=== PATIENT | male | born 1975 | race Caucasian/White ===

== ENCOUNTER → 2016-10-14 | Outpatient (CLI) | payer OTHER ==
--- NOTE | 2016-10-14 16:59 | REP ---
MRI LUMBAR SPINE WITHOUT CONTRAST: HISTORY: Left hip numbness. Decreased signal intensity on T2-weighted images is present in the L2-3 and L5-S1 intervertebral discs. The discs are decreased in height. These findings are consistent with disc degeneration. There is no disc bulge or herniation at the L1-2 and L3-4 levels. The nerves exit the neural foramina without compression. A diffuse disc bulge is present at the L2-3 level. There is minimal compression of the thecal sac. The L2 nerves exit the neural foramina without compression. A diffuse disc bulge is present at the L4-5 level. This abuts the thecal sac. The L4-5 nerves exit the neural foramina without compression. A diffuse disc bulge and small central disc protrusion are present at the L5-S1 level. There are 3 mm of retrolisthesis of L5 on S1. There is minimal compression of the thecal sac. The L5 nerves exit the neural foramina without compression. The conus medullaris is normal in appearance terminating at the level of T12-L1 intervertebral disc. Normal signal intensity is present in the lumbar vertebral bodies. IMPRESSION: 1. Diffuse disc bulge at the L2-3 level with minimal thecal sac compression. 2. Diffuse disc bulge at the L4-5 level. This abuts the thecal sac. 3. Diffuse disc bulge, small central disc protrusion and retrolisthesis at the L5-S1 level with minimal thecal sac compression. Signed by Yohannes Dimas MD 10/31/2016 08:08 A
== END ==
LOC: M RAD 15:53
PROVIDERS: ATTEND Physician Assistant
DX: M51.06 Intervertebral disc disorders with myelopathy, lumbar region (principal); M51.36 Other intervertebral disc degeneration, lumbar region